=== PATIENT | male | born 2000 | race African-American/Black ===

== ENCOUNTER 2023-05-15 00:01 | Emergency (ER) | payer OTHER, SELFPAY ==
[2023-05-15 00:21] LABS: #Basophils 0.1 thou/uL (0.0-0.2); #Lymphocytes 2.2 thou/uL (1.20-3.40); #Monocytes 0.6 thou/uL (0.11-0.59); #Neutrophils 2.9 thou/uL (1.40-6.50); %Basophils 1.4 % (0.0-1.0); %Eosinophils 0.6 % (0.0-10.0); %Lymphocytes 38.3 % (21.0-51.0); %Monocytes 9.7 % (0.0-10.0); Hematocrit 44.9 % (42.0-52.0); Hemoglobin 14.9 g/dL (14.0-18.0); Mean Corpuscular HGB CONC 33.2 g/dL (32.0-36.0); Mean Corpuscular Hemoglobin 30.7 pg (27.0-31.0); Mean Corpuscular Volume 92.5 fl (78.0-98.0); Mean Platelet Volume 8.2 fL (7.4-10.4); Platelet Count 301 10x3/uL (130-400); Red Blood Cell (RBC) Count 4.85 mill/uL (4.70-6.10); White Blood Cell (WBC) Count 5.8 10x3/uL (4.8-10.8)
[2023-05-15 00:36] LABS: Base Excess-Venous 0.8 mmol/L (-2.0 to 3.0); Bicarbonate (HCO3v) 23.3 mmol/L (22.0-28.0); CO2 Tension (PvCO2) 31.1 mmHg (42.0-51.0); Calcium, Ionized 1.09 mmol/L (1.15-1.33); Chloride 108 mmol/L (98-107); Hemoglobin - Calc 15.6 g/dL (14.0-18.0); Potassium 3.5 mmol/L (3.5-5.1); Sodium 143 mmol/L (138-145); T. Carbon Dioxide 24.3 mmol/L (22.0-28.0); vO2 Saturation-calc 99.3 % (60.0-85.0)
[2023-05-15] MEDS ORDERED: Ondansetron PF 4 MG/2 ML Vial ONE (00:43)
[2023-05-15 00:49] LABS: Troponin I Less than 0.010 ng/mL (< 0.028)
[2023-05-15 00:53] LABS: ALT (SGPT) 21 U/L (8-55); AST (SGOT) 32 U/L (5-34); Albumin 4.9 g/dL (3.5-5.0); Alkaline Phosphatase 76 U/L (40-110); Anion Gap 17 mmol/L (10-20); BUN (Urea Nitrogen) 11 mg/dL (8.9-20.6); Bilirubin, Total 1.3 mg/dL (0.2-1.2); CK (CPK) 1163 U/L (30-200); Calc. Creatinine Clearance 0 mL/min (70-130); Calcium 9.9 mg/dL (7.8-10.44); Carbon Dioxide 23 mmol/L (22-29); Chloride 107 mmol/L (98-107); Estimated GFR 79; Globulin 2.5 g/dL (2.4-3.5); Glucose 89 mg/dL (70-105); Potassium 3.8 mmol/L (3.5-5.1); Protein, Total 7.4 g/dL (6.0-8.3); Sodium 143 mmol/L (136-145)
[2023-05-15 00:54] LABS: Acetaminophen Less than 10 mcg/mL (10.0-30.0); Alcohol 25.8 mg/dL (Less than 10); Lipase 187 U/L (8-78); Salicylate Less than 8.0 mg/dL (15.0-30.0)
[2023-05-15] MEDS ORDERED: diphenhydrAMINE 50 MG/ML VIAL ONE (00:55)
[2023-05-15] MEDS ORDERED: Metoclopramide HCl 10 MG (2 mL) VIAL ONE (00:55)
[2023-05-15 01:05] LABS: SARS-CoV-2 NAA Rapid Test Not Detected (NotDetected)
[2023-05-15 01:22] LABS: Amphetamine Not Detected (NotDetected); Barbiturates Screen Not Detected (NotDetected); Benzodiazepine Screen Not Detected (NotDetected); Bilirubin Negative (Negative); Blood, Urine Negative (Negative); CAUTI Indications for Culture Pelvic or flank pain; Clarity Clear (Clear); Cocaine Metabolite Screen Not Detected (NotDetected); Glucose, Urine (Dipstick) Negative (Negative); Ketone, Urine 15 mg/dL (Negative); Leukocyte Negative (Negative); Methadone Not Detected (NotDetected); Methamphetamine Not Detected (NotDetected); Nitrite Negative (Negative); Opiate Screen Not Detected (NotDetected); Oxycodone Screen Not Detected (NotDetected); Phencyclidine (PCP) Not Detected (NotDetected); Protein, Urine (Dipstick) Trace mg/dL (Neg-Trace); RBC/HPF 0-3 HPF (0-3); Squamous Epithelial 0-3 HPF (0-3); THC/Cannabinoid Screen Detected (NotDetected); Tricyclic Screen Not Detected (NotDetected)
[2023-05-15 01:24] LABS: Urine Culture Reflex No No
[2023-05-15 02:20] LABS: Base Excess-Venous -2.2 mmol/L (-2.0 to 3.0); Bicarbonate (HCO3v) 22.9 mmol/L (22.0-28.0); CO2 Tension (PvCO2) 39.7 mmHg (42.0-51.0); Calcium, Ionized 1.06 mmol/L (1.15-1.33); Chloride 111 mmol/L (98-107); Hemoglobin - Calc 12.3 g/dL (14.0-18.0); Potassium 3.8 mmol/L (3.5-5.1); Sodium 143 mmol/L (138-145); T. Carbon Dioxide 24.1 mmol/L (22.0-28.0); vO2 Saturation-calc 43.9 % (60.0-85.0)
[2023-05-15] MEDS ORDERED: Iopamidol 370 76% 100 ML VIAL ONE (09:00)
== END 2023-05-15 02:55 | disposition home or self-care (01) ==
LOC: MADERS 00:01
DX: R11.2 Nausea with vomiting, unspecified (principal); M62.82 Rhabdomyolysis
CPT/HCPCS: 70450; 71275; 74174; 80053; 80306; 80307; 81001; 82330; 82550; 82803; 83605; 83690; 83735; 83880; 84484; 85025; 85379; 87081; 87430; 87804; 93005; 96361; 96374; 96375; J1200; J2405; J2765; Q9967; U0002